=== PATIENT | female | born 1970 | race Caucasian/White ===

== ENCOUNTER 2018-05-08 11:07 | Emergency (ER) | payer OTHER ==
[~2018-05-08] VITALS: Ht 157.5 cm; Wt 58.1 kg
[2018-05-08 11:12] VITALS: BP 126/92
--- NOTE | 2018-05-08 11:20 | NUR ---
PT AMBULATES WITH CRUTCH ASSISTANCE TO BED 8
--- NOTE | 2018-05-08 11:25 | NUR ---
PATIENT PRESENTS TO ED WITH PT C/O LOW OUTPUT AND REPEATED EMESIS X 3 DAYS---CONCERNED ABOUT OBSTRUCTION COLOSTOMY 2 TO SEVERE DIVERTICULITIS---DENIES BRIGHT RED BLOOD IN STOOL OR EMESIS DENIES D; SKIN IS PINK/WARM/DRY; AAOX4 WITH EVEN AND STEADY GAIT; LUNGS CLEAR BL; HR EVEN AND REGULAR; PT DENIES ANY FEVER, CP, SOB, OR COUGH AT THIS TIME; PATIENT STATES PAIN OF 0/10 AT THIS TIME; VSS; PATIENT POSITIONED FOR COMFORT; HOB ELEVATED; BEDRAILS UP X2; BED DOWN. ER MD MADE AWARE OF PT STATUS.
[2018-05-08] MEDS ORDERED: NACL 0.9% 1,000 ML IV SCH (11:44)
[2018-05-08] MEDS ORDERED: METOCLOPRAMIDE 10 MG/2 ML INJ VIAL IVP ONE (11:45)
[2018-05-08 12:15] LABS: BASOPHILS # (AUTO) 0.1 K/uL (0.00-0.22); BASOPHILS % (AUTO) 0.8 % (0.0-2.0); EOSINOPHILS # (AUTO) 0.1 K/uL (0-0.4); EOSINOPHILS % (AUTO) 1.5 % (0.0-4.0); HEMATOCRIT 44.3 % (36-48); HEMOGLOBIN 14.7 g/dL (12.0-16.0); LYMPHOCYTES # (AUTO) 2.3 K/uL (2.5-16.5); LYMPHOCYTES % (AUTO) 26.5 % (20.5-51.1); MEAN CORPUSCULAR HEMOGLOBIN 32 pg (27-31); MEAN CORPUSCULAR HGB CONC 33 g/dL (33-37); MEAN CORPUSCULAR VOLUME 95.9 fL (80-94); MONOCYTES # (AUTO) 0.6 K/uL (0.8-1.0); MONOCYTES % (AUTO) 7.3 % (1.7-9.3); NEUTROPHILS # (AUTO) 5.6 K/uL (1.8-7.7); NEUTROPHILS % (AUTO) 63.9 % (42.2-75.2); PLATELET COUNT (AUTO) 287 K/uL (140-450); RED BLOOD CELL COUNT(AUTO) 4.62 MIL/uL (4.20-5.40); RED CELL DISTRIBUTION WIDTH 13.3 % (11.6-13.7); WHITE BLOOD COUNT (AUTO) 8.8 K/uL (4.8-10.8)
[2018-05-08 12:31] LABS: ALBUMIN 3.4 g/dL (3.4-5.0); ANION GAP 10.3 (8-16); CARBON DIOXIDE 30.7 mmol/L (21-32); CREATININE 0.7 mg/dL (0.6-1.3); TOTAL BILIRUBIN 0.5 mg/dL (0.0-1.0)
--- NOTE | 2018-05-08 12:40 | NUR ---
PT UNABLE TO PROVIDE URINE AT THIS TIME...PT INSTRUCTED THAT WE NEED URINE SPECIMEN FOR FINAL DIAGNOSIS AND PREG TEST. PT VERBALIZES THAT SHE IS 100% SURE THAT SHE IS NOT . IV FLUIDS INFUSING WELL AT THIS TIME. IV SITE C/D/I.
--- NOTE | 2018-05-08 13:01 | NUR ---
PT RESTING IN BED, STATES " I FEELING BETTER ALREADY." IVF NS RUNNING TO LAC IV. XRAY PAGED TO HAVE XRAY DONE. PT STATES SHE IS WILLING TO SIGN CONSENT TO HAVE XRAY DONE WITHOUT PREG TEST DONE
--- NOTE | 2018-05-08 13:30 | NUR ---
IV HL DC'D DISPOSITION IS FOR PT TO BE DISCHARGED.
--- NOTE | 2018-05-08 14:18 | NUR ---
Jeffrey moya in [facility] - 05/08/18 at 1419 by [employer] PT TRANSFERS TO BEDSIDE COMMODE WITH STEADY GAIT.
--- NOTE | 2018-05-08 14:19 | NUR ---
PT AMBULATES TO BR WITH CRUTCHES WITH NO ASSIST.
[2018-05-08 14:26] LABS: APPEARANCE,URINE CLEAR (CLEAR); BILIRUBIN,URINE NEGATIVE (NEGATIVE); BLOOD, URINE NEGATIVE (NEGATIVE); COLOR,URINE YELLOW (YELLOW); LEUKOCYTE ESTERASE ,URINE NEGATIVE (NEGATIVE); NITRITE, URINE NEGATIVE (NEGATIVE); UGLUCOSE NEGATIVE (NEGATIVE)
--- NOTE | 2018-05-08 14:40 | NUR ---
PATIENT ELOPED FROM FACILITY. DISCHARGE INSTRUCTIONS NOT GIVEN TO PATIENT. NOTIFIED. PT POSSIBLY ELOPED WITH IV IN PLACED. [facility] NOTIFIED
== END 2018-05-08 14:40 | disposition left against medical advice (07) ==
LOC: MED 11:07
DX: K29.70 Gastritis, unspecified, without bleeding (principal); M06.9 Rheumatoid arthritis, unspecified; F17.210 Nicotine dependence, cigarettes, uncomplicated
CPT/HCPCS: 36415; 74021; 80053; 81003; 81025; 83690; 85025; 96361; 96374; 99285; J2765; J7030; 99284